=== PATIENT | male | born 1985 | race Caucasian/White ===

== ENCOUNTER 2022-09-23 10:46 | Emergency (ER) | payer OTHER, SELFPAY ==
[2022-09-23 11:00] VITALS: BP 150/92; PULSE 66; RESP 16; TEMP 36.4; O2SAT 100
--- NOTE | 2022-09-23 11:47 | ED.SKABFB ---
HPI - Skin/Abscess/Foreign Bdy General Chief complaint: Skin/Abscess/Foreign Body Stated complaint: body rash on face/hands Time Seen by Provider: 09/23/22 11:40 Source: patient, RN notes reviewed and old records reviewed Mode of arrival: ambulatory Limitations: no limitations History of Present Illness HPI narrative: 37 year old male who presents to [facility] care with complaints of rash on face, the ears and some spots his hands which are itchy red raised with some clear drainage noted. Patient reports that he had flu like symptoms last Monday with alot of sweating and fevers with those symptoms resolved but then he developed rash.Patient reports that he has taken Benadryl and has applied hydrocortisone cream without improvement. MD complaint: rash Treatments prior to arrival: other ( Benadryl and cortisone cream) Related Data Allergies Allergy/AdvReac Type Severity Reaction Status Date / Time No Known Allergies Allergy Verified 09/23/22 11:27 Review of Systems Review of Systems: CONSTITUTIONAL: Denies fever, chills, or sweats. CARDIOVASCULAR: Denies chest pain, palpitations, or edema. RESPIRATORY: Denies cough or dyspnea. SKIN: Reports red raised itchy rash on face around nose and mouth ears and on dorsal hand MUSCULOSKELETAL: Denies joint pain or myalgia. NEUROLOGIC: Denies headache, numbness, or weakness. All systems reviewed & are unremarkable except as noted in HPI and below PMFSH Comments At time of signature, agree with nursing past medical, surgical, social and family history. There is no relevant family history pertinent to the presenting complaint Exam Narrative: GENERAL: Well-appearing, well-nourished, and in no acute distress. HEAD: Normocephalic, atraumatic. EYES: PERRLA, conjunctivae clear, and EOMI. ENT: Mucous membranes moist. Oropharynx without edema, erythema or lesions. NECK: Supple. No lymphadenopathy CHEST: Clear to auscultation. No respiratory distress.SAO2 100% on room air HEART: Regular rate and rhythm. SKIN: Warm, dry.? Patches of erythema raised rash on face around nose, ears mouth, and on dorsal hands which is itchy with some clear drainage noted. NEURO:? Alert and oriented x3. PSYCH: Normal mood and affect Course Course Emergency Course: Patient is aware of diagnosis, understands and agrees to treatment plan.? Anticipatory guidance given.? Patient agrees to follow-up as directed and is aware of reasons to seek care at the emergency department. Portions of this record may have been created with voice recognition software Level of Care: Express Care Visit Vital Signs Vital signs: Vital Signs Temperature 36.4 C 09/23/22 11:00 Pulse Rate 66 09/23/22 11:00 Respiratory Rate 16 09/23/22 11:00 Blood Pressure 150/92 H 09/23/22 11:00 Pulse Oximetry 100 09/23/22 11:00 Temperature 36.4 C 09/23/22 11:00 Pulse Rate 66 09/23/22 11:00 Respiratory Rate 16 09/23/22 11:00 Blood Pressure 150/92 H 09/23/22 11:00 Pulse Oximetry 100 09/23/22 11:00 Reviewed MDM - Skin/Abscess/Foreign Bdy MDM Narrative Medical decision making narrative: Does not appear at this time to be erythema multiforme, bullous, SJS, TEN; no evidence at this time to suggest RMSF, endocarditis or Lyme disease; patient looks well, nontoxic and is tolerating oral intake; no neurologic signs or symptoms; no headache, photophobia or neck pain; afebrile; appropriate for initial outpatient treatment; discussed the importance of follow-up, patient agrees; question, viral exanthema, contact dermatitis, allergic dermatitis, eczema, urticaria, [ xx ]. No soft palate or uvula edema, no tongue, lip edema or other mucosal involvement, no respiratory compromise, no stridor, no wheezing, no wheezing, no history of syncope, no hypotension, no nausea, vomiting, or diarrhea.? Instructed patient to go to nearest ER immediately for any worsening symptoms including but not limited to: fever, spreading ese
== END 2022-09-23 12:16 | disposition home or self-care (01) ==
PROVIDERS: Emergency Provider Registered Nurse
DX: L73.9 Follicular disorder, unspecified (principal)
CPT/HCPCS: 99213; G0463